=== PATIENT | female | born 1990 ===

== ENCOUNTER 2018-02-19 08:18 | Day surgery (SDC) | payer SELFPAY ==
[2018-02-19 08:32] VITALS: BMI 23.0
[2018-02-19] MEDS ORDERED: Midazolam 2 MG/2 ML VIAL ONE (09:22)
[2018-02-19] MEDS ORDERED: Propofol 10 mg/ml Inj (20 ML) ONE (09:23)
[2018-02-19] MEDS ORDERED: Lidocaine 4% (Laryng-O-Jet) Kit MM ONE (09:24)
[2018-02-19] MEDS ORDERED: cefOXitin IV 2 gm in Dextrose 2 GM/50 ML BAG IVPB ONE (09:25)
[2018-02-19] MEDS ORDERED: Bupivacaine 0.25% 20 ML INJ IJ ONE (09:25)
[2018-02-19] MEDS ORDERED: Rocuronium 10 mg/ml (5 ml) ONE (09:26)
[2018-02-19] MEDS ORDERED: Neostigmine Methylsulfate 3mg/3ml Syringe IV ONE (10:23)
[2018-02-19] MEDS: HYDROmorphone 0.5 mg/0.5 ml ISec IVP PRN ×2 (11:10→11:35)
[2018-02-19 15:11] VITALS: O2SAT 100
[2018-02-19 16:29] VITALS: BP 104/63; PULSE 68; RESP 20; TEMP 97.8
--- NOTE | 2018-02-19 22:27 | OP ---
PROCEDURE DATE: 02/19/2018 PREOPERATIVE DIAGNOSES: Chronic pelvic pain, endometriosis, desires sterilization. POSTOPERATIVE DIAGNOSES: Chronic pelvic pain, endometriosis, desires sterilization. PROCEDURE: Dilation and curettage of the uterus, laparoscopy, bilateral salpingectomy, and lysis of adhesions. FINDINGS: Adhesions involving the omental and anterior abdominal wall, which were lysed. Both tubes are normal. Scant endocervical and endometrial curettings. Ovaries are normal. Uterus is normal in size. SURGEON: Bob Arroyo MD DESCRIPTION OF PROCEDURE: After the risks, benefits, and alternatives of the planned procedures, including but not limited to the infection, hemorrhage, deep vein thrombosis, atelectasis, pneumonia, pulmonary embolism, damage to the bladder, damage to the ureter, renal insufficiency, renal failure, wound infection, wound dehiscence, incisional hernia, keloid formation, damage to the large and small intestines, damage to the inferior vena cava and aorta, requiring extensive repair, anesthesia complications, electrolyte imbalance, possibility of , fluid overload, cerebral edema, air embolism, failure of sterilization, ectopic , persistence of pelvic pain, recurrence of pelvic pain, and other complications that were discussed, but are not listed above, have been explained to the patient and all her questions answered, informed consent was obtained. The patient was taken to the operating room in a stable condition. Under acceptable level of general anesthesia, she was prepped and draped in a sterile fashion after having been placed in a dorsal lithotomy position. A Moya catheter was inserted. Examination under anesthesia revealed a normal size uterus and ovaries with no adnexal masses. A weighted speculum was inserted into the vagina. The anterior lip of the cervix was grasped using a single-tooth tenaculum and endocervical curettage was performed and scant tissue was obtained. The uterus was sounded at 7 cm. The cervix was dilated with a #18 Hanks dilator and endometrial curettage was performed and scant tissue was obtained. A HUMI catheter was inserted into the cervix and insufflated in to place. Through an umbilical left upper quadrant incision, a 5-mm trocar sleeve was inserted under laparoscopic guidance, and pneumoperitoneum was created. A 5-mm puncture site was made 3 fingerbreadths above the pubic symphysis through which, a 5-mm trocar sleeve was inserted. A 5-mm puncture site was made in the right iliac fossa through which a 5-mm Trocar sleeve were inserted. Adhesions involving the omentum and anterior abdominal wall were then lysed with the help of a LigaSure. The right and left mesosalpinx of the fallopian tube was then resected starting at the cornu and resecting the entire tube on the right and left side to include the fimbriated end of the tube. The tubes were submitted separately for pathology. At the end of the procedure, peritoneal cavity was irrigated using copious amounts of saline. The saline was evacuated. The suprapubic and right iliac fossa sleeves were removed under laparoscopic guidance. Abdomen was deflated with carbon dioxide and the left upper quadrant sleeve was removed under laparoscopic guidance. The skin incision was then closed using 4-0 Monocryl. Estimated blood loss for the procedure was 1 mL. Pad, needle, and instrument counts were correct x2. There were no complications. Bob Arroyo MD
== END 2018-02-19 16:40 | disposition home or self-care (01) ==
LOC: C.SDS 08:18
PROVIDERS: ATTEND Obstetrics & Gynecology Reproductive Endocrinology
DX: N80.9 Endometriosis, unspecified (principal); G89.29 Other chronic pain; N70.11 Chronic salpingitis; Z30.2 Encounter for sterilization
CPT/HCPCS: 58120; 58661; 84703; 88302; 88305; J0694; J1170; J1885; J2250; J2405; J2704; J2710; J2765; J3010